=== PATIENT | female | born 1965 | race American Indian/Alaskan Native ===

== ENCOUNTER 2021-01-14 23:07 | Emergency (ER) | payer OTHER ==
[2021-01-14 23:16] VITALS: BP 182/102
--- NOTE | 2021-01-14 23:29 | Emergency Department Report ---
ED ENT HPI - General Chief complaint: Dental/Oral Stated complaint: TOOTHACHE PAINS Time Seen by Provider: 01/14/21 23:09 Source: patient Mode of arrival: Ambulatory Limitations: No Limitations - History of Present Illness Initial comments: Patient is a 55-year-old female that presents emergency room with complaints of dental pain. Patient states her dental pain is been going on since her surgery last Tuesday. Patient states she ran out of her pain medications. Patient states she is currently taking amoxicillin and ibuprofen that was prescribed by her dentist. Patient states her dentist gave her 8 pills of hydrocodone but that has ran out. Patient states her pain was improving but after running out of the pain medications her pain flared back up. Patient states that she has had a lot of facial swelling and swelling from the site where she had her wisdom tooth removed and the swelling is improving. Patient denies fever and chills. Patient denies headache. Patient states she is having pain in the left side of her face and at extraction site. Patient states the pain is a 10 out of 10. Patient states the pain is worsening. Patient states she needs a refill of her pain medication. Patient denies recent travel. Patient denies recent international travel. Patient denies exposure to the novel coronavirus. Patient denies sick contacts. Patient denies fever and chills. Patient denies cough. Patient denies diarrhea. Patient denies coming in contact with anybody with symptoms of the novel coronavirus. MD complaint: tooth pain -: Sudden Severity: severe Severity scale (0 -10): 10 Quality: stabbing Consistency: constant Improves with: rest Worsens with: eating, movement Context- Dental: other Associated Symptoms: gum swelling, toothache. denies: fever, cough, pain with swallowing, sore throat, tinnitus, hearing loss, discharge from ear, rhinorrhea - Related Data Previous Rx's Medication Instructions Recorded Last Taken Type HYDROcodone/APAP 10-325 [[place] 1 each PO Q6HR PRN #8 tablet 01/14/21 Unknown Rx 10/325] Allergies Allergy/AdvReac Type Severity Reaction Status Date / Time Sulfa (Sulfonamide Allergy Unknown Verified 01/14/21 23:09 Antibiotics) ED Dental HPI - General Chief complaint: Dental/Oral Stated complaint: TOOTHACHE PAINS Time Seen by Provider: 01/14/21 23:12 Source: patient Mode of arrival: Ambulatory Limitations: No Limitations - Related Data Previous Rx's Medication Instructions Recorded Last Taken Type HYDROcodone/APAP 10-325 [[place] 1 each PO Q6HR PRN #8 tablet 01/14/21 Unknown Rx 10/325] Allergies Allergy/AdvReac Type Severity Reaction Status Date / Time Sulfa (Sulfonamide Allergy Unknown Verified 01/14/21 23:09 Antibiotics) ED Review of Systems ROS: Stated complaint: TOOTHACHE PAINS Other details as noted in HPI Constitutional: denies: chills, fever Eyes: denies: eye pain, eye discharge, vision change ENT: as per HPI, dental pain. denies: ear pain, throat pain Respiratory: denies: cough, shortness of breath, wheezing Cardiovascular: denies: chest pain, palpitations Endocrine: no symptoms reported Gastrointestinal: denies: abdominal pain, nausea, diarrhea Genitourinary: denies: urgency, dysuria, discharge Musculoskeletal: denies: back pain, joint swelling, arthralgia Skin: denies: rash, lesions Neurological: denies: headache, weakness, paresthesias Psychiatric: denies: anxiety, depression Hematological/Lymphatic: denies: easy bleeding, easy bruising ED Past Medical Hx - Past Medical History Previous Medical History?: Yes Additional medical history: hypothyroidism - Surgical History Past Surgical History?: Yes Additional Surgical History: neck right shoulder lower lumbar - Family History Family history: no significant - Social History Smoking Status: Never Smoker Substance Use Type: None - Medications Home Medications: Home Medications Medication Instructions Recorded Confirmed Last Taken Type HYDROcodone/APAP 10-325 [[place] 1 each PO Q6HR PRN #8 tablet 01/14/21 Unknown Rx 10/325] ED Physical Exam - General Limitations: No Limitations General appearance: alert, in no apparent distress - Head Head exam: Present: atraumatic, normocephalic - Eye Eye exam: Present: normal appearance - ENT ENT exam: Present: mucous membranes moist, other (Left-sided facial swelling. Extraction site noted. No purulent discharge from the extraction site.) - Neck Neck exam: Present: normal inspection - Respiratory Respiratory exam: Present: normal lung sounds bilaterally. Absent: respiratory distress - Cardiovascular Cardiovascular Exam: Present: regular rate, normal rhythm. Absent: systolic murmur, diastolic murmur, rubs, gallop - GI/Abdominal GI/Abdominal exam: Present: soft, normal bowel sounds - Extremities Exam Extremities exam: Present: normal inspection - Back Exam Back exam: Present: normal inspection - Neurological Exam Neurological exam: Present: alert, oriented X3 - Psychiatric Psychiatric exam: Present: normal affect, normal mood - Skin Skin exam: Present: warm, dry, intact, normal color. Absent: rash ED Course Vital Signs 01/14/21 23:13 Temperature 98.2 F Pulse Rate 77 Respiratory 16 Rate Blood Pressure 182/102 O2 Sat by Pulse 99 Oximetry - Reevaluation(s) Reevaluation #1: I discussed all results and clinical findings with patient. I discussed plan of care with patient. Patient agrees with plan of care. Patient is stable for discharge. Patient will be discharged home. Patient given discharge instructions. Patient voiced understanding of discharge instructions. 01/14/21 23:28 ED Medical Decision Making - Medical Decision Making Patient is a 55-year-old female that presents emergency room for dental pain and running out of her pain medication. Patient states that she ran out of her pain medication after having a wisdom tooth but states can get a hold of the dentist. Patient will be given a refill of her hydrocodone. Patient was given hydrocodone 10 mg. Patient instructed to follow-up with her dentist and go to the dental office in person. Patient is advised to continue her amoxicillin and her ibuprofen. Patient is not require any further emergency medical service. Patient has reassuring vital signs. Patient not require inpatient service. Patient does not require emergent transfer. Patient not require any further evaluation. I discussed all results and clinical findings with patient. I discussed plan of care with patient. Patient agrees with plan of care. Patient is stable for discharge. Patient will be discharged home. Patient given discharge instructions. Patient voiced understanding of discharge instructions. - Differential Diagnosis Dental pain, Critical care attestation.: If time is entered above; I have spent that time in minutes in the direct care of this critically ill patient, excluding procedure time. ED Disposition Clinical Impression: Pain, dental Disposition: 01 HOME / SELF CARE / HOMELESS Is pt being admited?: No Does the pt Need Aspirin: No Condition: Stable Instructions: Acute Pain, Adult, Dental Extraction Additional Instructions: Patient to follow-up with primary care in 2 to 3 days. Patient to follow-up with dentist within 24 hours.. Patient to rest. Patient to increase water. Patient to avoid strenuous exercise or heavy lifting until cleared by dentist and primary care. Patient to take Tylenol or ibuprofen as needed for pain. Patient to take meds as directed. Patient to return to the ER if condition worsens, changes or new symptoms arise. Prescriptions: HYDROcodone/APAP 10-325 [[place] 10/325] 1 each PO Q6HR PRN #8 tablet PRN Reason: Pain Time of Disposition: 23:31
[2021-01-14] MEDS ORDERED: HYDROcodone/ACETAMINOPHEN 10-325MG TAB PO ONE (23:41)
== END 2021-01-15 00:40 | disposition home or self-care (01) ==
LOC: ED 23:07
DX: K08.89 Other specified disorders of teeth and supporting structures (principal); E03.9 Hypothyroidism, unspecified; Z98.890 Other specified postprocedural states; Z88.2 Allergy status to sulfonamides
CPT/HCPCS: 99282

== ENCOUNTER 2021-02-05 07:44 | Emergency (ER) | payer OTHER ==
[2021-02-05 07:56] VITALS: BP 128/84
[2021-02-05] MEDS ORDERED: KETOROLAC 60 MG/2 ML INJ IM ONE (08:16)
[2021-02-05] MEDS ORDERED: CLINDAMYCIN 300 MG CAP PO ONE (08:16)
--- NOTE | 2021-02-05 08:16 | Emergency Department Report ---
ED ENT HPI - General Chief complaint: Dental/Oral Stated complaint: TOOTHACHE Time Seen by Provider: 02/05/21 08:02 Source: patient Mode of arrival: Ambulatory Limitations: No Limitations - History of Present Illness Initial comments: 55 yo AA comes to ER with dental pain. She recently had extraction of left lower molar. Then had her teeth cleaned and since has pain of the r lower molar. She states she needs another extraction but they have referred her to an oral surgeon and that appnt is next week. She has been on amox for 3 weeks and is still having pain; despite antibiotic and otc pain meds vss abc intact controlling secretions complaint: tooth pain -: Gradual, week(s) Location: other Severity: moderate Severity scale (0 -10): 8 Quality: aching Consistency: constant Worsens with: none Context- Dental: history of dental caries Associated Symptoms: toothache. denies: fever, cough, gum swelling, pain with swallowing, sore throat, tinnitus, hearing loss, discharge from ear, rhinorrhea - Related Data Previous Rx's Medication Instructions Recorded Last Taken Type Chlorhexidine Mouthwash [Peridex] 15 ml MM BID #1 bottle 02/05/21 Unknown Rx Clindamycin [Clindamycin CAP] 300 mg PO Q8H #30 cap 02/05/21 Unknown Rx traMADoL [Ultram] 50 mg PO Q6HR PRN #10 tablet 02/05/21 Unknown Rx Allergies Allergy/AdvReac Type Severity Reaction Status Date / Time Sulfa (Sulfonamide Allergy Unknown Verified 01/14/21 23:09 Antibiotics) ED Dental HPI - General Chief complaint: Dental/Oral Stated complaint: TOOTHACHE Time Seen by Provider: 02/05/21 08:02 Source: patient Mode of arrival: Ambulatory Limitations: No Limitations - Related Data Previous Rx's Medication Instructions Recorded Last Taken Type Chlorhexidine Mouthwash [Peridex] 15 ml MM BID #1 bottle 02/05/21 Unknown Rx Clindamycin [Clindamycin CAP] 300 mg PO Q8H #30 cap 02/05/21 Unknown Rx traMADoL [Ultram] 50 mg PO Q6HR PRN #10 tablet 02/05/21 Unknown Rx Allergies Allergy/AdvReac Type Severity Reaction Status Date / Time Sulfa (Sulfonamide Allergy Unknown Verified 01/14/21 23:09 Antibiotics) ED Review of Systems ROS: Stated complaint: TOOTHACHE Other details as noted in HPI Comment: All other systems reviewed and negative ED Past Medical Hx - Past Medical History Previous Medical History?: Yes Additional medical history: hypothyroidism - Surgical History Past Surgical History?: Yes Additional Surgical History: neck right shoulder lower lumbar - Family History Family history: no significant - Social History Smoking Status: Never Smoker Substance Use Type: None - Medications Home Medications: Home Medications Medication Instructions Recorded Confirmed Last Taken Type Chlorhexidine Mouthwash [Peridex] 15 ml MM BID #1 bottle 02/05/21 Unknown Rx Clindamycin [Clindamycin CAP] 300 mg PO Q8H #30 cap 02/05/21 Unknown Rx traMADoL [Ultram] 50 mg PO Q6HR PRN #10 tablet 02/05/21 Unknown Rx ED Physical Exam - General Limitations: No Limitations General appearance: alert, in no apparent distress - Head Head exam: Present: atraumatic, normocephalic - Eye Eye exam: Present: normal appearance - ENT ENT exam: Present: mucous membranes moist - Expanded ENT Exam Expanded Mouth exam: Present: normal external inspection. Absent: drooling, trismus, muffled voice Teeth exam: Present: dental caries, fractured tooth # 1 - Fractured 2 - Other (recent extraction) - Neck Neck exam: Present: normal inspection - Respiratory Respiratory exam: Present: normal lung sounds bilaterally. Absent: respiratory distress - Cardiovascular Cardiovascular Exam: Present: regular rate, normal rhythm. Absent: systolic murmur, diastolic murmur, rubs, gallop - GI/Abdominal GI/Abdominal exam: Present: soft, normal bowel sounds - Extremities Exam Extremities exam: Present: normal inspection - Back Exam Back exam: Present: normal inspection - Neurological Exam Neurological exam: Present: alert, oriented X3 - Psychiatric Psychiatric exam: Present: normal affect, normal mood - Skin Skin exam: Present: warm, dry, intact, normal color. Absent: rash ED Course Vital Signs 02/05/21 02/05/21 02/05/21 07:54 08:35 08:36 Temperature 98.6 F Pulse Rate 76 Respiratory 18 16 16 Rate Blood Pressure 128/84 O2 Sat by Pulse 95 Oximetry ED Medical Decision Making - Medical Decision Making Vital Signs 02/05/21 02/05/21 02/05/21 07:54 08:35 08:36 Temperature 98.6 F Pulse Rate 76 Respiratory 18 16 16 Rate Blood Pressure 128/84 O2 Sat by Pulse 95 Oximetry no abscess/ trismus taking po pt instructed to stop amox and take clinda as given today she has been on it 3 weeks and has no relief she should see her oral surgeon linda medicated in ER for pain and with clinda. dc home with dc instructions including dental follow up. Pt verbalizes understanding of dc plan of care. - Differential Diagnosis dental pain Critical care attestation.: If time is entered above; I have spent that time in minutes in the direct care of this critically ill patient, excluding procedure time. ED Disposition Clinical Impression: Pain, dental, Dental caries Disposition: HOME / SELF CARE / HOMELESS Is pt being admited?: No Does the pt Need Aspirin: No Condition: Stable Instructions: Dental Extraction, Care After, [id number] Additional Instructions: stop amox. take antibiotic given to you today continue motrin and tylenol for pain continue mouth wash see oral surg linda Prescriptions: Clindamycin [Clindamycin CAP] 300 mg PO Q8H #30 cap Chlorhexidine Mouthwash [Peridex] 15 ml MM BID #1 bottle traMADoL [Ultram] 50 mg PO Q6HR PRN #10 tablet PRN Reason: Pain Referrals: [facility] [Outside] - 3-5 Days [facility] [Outside] - 3-5 Days Time of Disposition: 08:22
[2021-02-05] MEDS ORDERED: HYDROcodone/ACETAMINOPHEN 5-325 MG TAB PO ONE (08:20)
== END 2021-02-05 08:59 | disposition home or self-care (01) ==
LOC: ED 07:44
DX: K08.89 Other specified disorders of teeth and supporting structures (principal); K02.9 Dental caries, unspecified; E03.9 Hypothyroidism, unspecified; Z98.890 Other specified postprocedural states; Z88.1 Allergy status to other antibiotic agents
CPT/HCPCS: 96372; 99282; J1885